=== PATIENT | female | born 1950 | race Caucasian/White ===

== ENCOUNTER → 2016-04-16 | Outpatient (CLI) | payer OTHER ==
[~2016-04-16] MED LIST: ADVIN25050 INH; ASPEC81 PO; ETAN50IN3 SQ; MTH25 PO; OXYSR10 PO; POLYSOL OPB; RXC5 PO; SNK PO; TRAM-10 PO
--- NOTE | 2016-04-16 16:37 | MAMMOGRAPHY REPORT ---
BILATERAL DIGITAL SCREENING MAMMOGRAM WITH CAD: 04/16/2016 CLINICAL HISTORY: Routine screening examination. TECHNIQUE: Bilateral CC and MLO views were obtained. Current study was also evaluated with a Comput er Aided Detection (CAD) system. COMPARISON: Comparison is made to exams dated: 04/13/2015 mammogram, 04/12/2014 mammogram, and 04/08/2012 mammogram - [facility]. BREAST COMPOSITION: There are scattered areas of fibroglandular density in both breasts. FINDINGS: Benign-appearing punctate microcalcifications scattered bilaterally are stable compared to prior exams. No suspicious mass, architectural distortion or cluster of microcalcifications is see n. IMPRESSION: ACR BI-RADS CATEGORY 1: NEGATIVE There is no mammographic evidence of malignancy. A 1 year screening mammogram is recommended. The p atient will receive written notification of the results. Approximately 10% of breast cancers are not detected with mammography. A negative mammographic repor t should not delay biopsy if a clinically suggestive mass is present. Nidhi Andrews M.D. ay/:04/16/2016 14:32:12 Steep Tender: Moraima LUNA(R)(Syl), [facility] letter sent: Normal 1/2 BI-RADS Code: ACR BI-RADS Category 1: Negative
== END | disposition home or self-care (01) ==
LOC: C.MAMM 08:49
PROVIDERS: ATTEND Obstetrics & Gynecology
DX: Z12.31 Encounter for screening mammogram for malignant neoplasm of breast (principal)

== ENCOUNTER → 2016-07-30 | Outpatient (CLI) | payer OTHER | END | disposition home or self-care (01) | LOC: C.PAPS 14:20 | PROVIDERS: ATTEND Obstetrics & Gynecology | DX: Z01.419 Encounter for gynecological examination (general) (routine) without abnormal findings (principal); L90.0 Lichen sclerosus et atrophicus ==

== ENCOUNTER → 2017-04-18 | Outpatient (CLI) | payer OTHER ==
--- NOTE | 2017-04-18 15:07 | MAMMOGRAPHY REPORT ---
BILATERAL DIGITAL SCREENING MAMMOGRAM TOMOSYNTHESIS WITH CAD: 04/18/2017 CLINICAL HISTORY: Routine screening. Patient has no complaints. TECHNIQUE: Breast tomosynthesis in addition to standard 2D mammography was performed. Current study was also evaluated with a Computer Aided Detection (CAD) system. COMPARISON: Comparison is made to exams dated: 04/16/2016 mammogram, 04/13/2015 mammogram, 04/12/2014 axel mogram, 04/09/2013 mammogram, 04/08/2012 mammogram, and 04/05/2011 mammogram - [facility]. BREAST COMPOSITION: There are scattered areas of fibroglandular density in both breasts. FINDINGS: No suspicious masses, calcifications, or areas of architectural distortion are noted in ei ther breast. There has been no significant interval change compared to prior exams. IMPRESSION: ACR BI-RADS CATEGORY 1: NEGATIVE There is no mammographic evidence of malignancy. A 1 year screening mammogram is recommended. The pa tient will receive written notification of the results. Approximately 10% of breast cancers are not detected with mammography. A negative mammographic report should not delay biopsy if a clinically suggestive mass is present. Marcia Rao M.D. ah/:04/18/2017 12:12:35 Or Manager: Nicole LUNA(Cindy)(Syl), [facility] letter sent: Normal 1/2 BI-RADS Code: ACR BI-RADS Category 1: Negative
== END | disposition home or self-care (01) ==
LOC: C.MAMM 08:43
PROVIDERS: ATTEND Obstetrics & Gynecology
DX: Z12.31 Encounter for screening mammogram for malignant neoplasm of breast (principal)

== ENCOUNTER → 2017-08-01 | Outpatient (CLI) | payer OTHER ==
[~2017-08-01] MED LIST changes: -ASPEC81 PO; +ASPI-320 PO
== END | disposition home or self-care (01) ==
LOC: C.LABSPEC 14:01
PROVIDERS: ATTEND Obstetrics & Gynecology
DX: N39.46 Mixed incontinence (principal)

== ENCOUNTER → 2017-08-20 | Outpatient (CLI) | payer OTHER | END | disposition home or self-care (01) | LOC: C.PATHSPEC 17:08 | PROVIDERS: ATTEND Urology | DX: R31.29 Other microscopic hematuria (principal); N95.2 Postmenopausal atrophic vaginitis ==

== ENCOUNTER → 2017-11-10 | Outpatient (CLI) | payer OTHER ==
[~2017-11-10] MED LIST changes: +ADVIN25/60 INH; -ADVIN25050 INH; -ASPI-320 PO; +DTR5 PO; -OXYSR10 PO; -POLYSOL OPB; -RXC5 PO; -SNK PO; +SULI150T PO; -TRAM-10 PO
[2017-11-10 17:06] LABS: BASO % 0.6 %; BASO ABS # 0.05 K/uL (0-0.2); EOS % 3.6 %; EOS ABS # 0.32 K/uL (0-0.5); HEMATOCRIT 38.9 % (37-47); HEMOGLOBIN 12.4 g/dL (12.0-16.0); IG# 0.02 K/uL (0.00-0.02); LYMPH % 23.1 %; LYMPH ABS # 2.05 K/uL (1.2-3.4); MEAN CELL VOLUME 91.7 fL (80-100); MEAN CORPUSCULAR HEMOGLOBIN 29.2 pg (25-34); MEAN CORPUSCULAR HGB CONC 31.9 g/dl (32-36); MEAN PLATELET VOLUME 11.5 fL (7.4-10.4); MONO % 7.2 %; MONO ABS # 0.64 K/uL (0.11-0.59); NEUT % 65.3 %; NEUT ABS # 5.78 K/uL (1.4-6.5); PLATELET COUNT 185 K/uL (130-400); RED CELL DISTRIBUTION WIDTH CV 14.8 % (11.5-14.5); WHITE BLOOD COUNT 8.86 K/uL (4.8-10.8)
== END | disposition home or self-care (01) ==
LOC: C.LAB1850 15:17
PROVIDERS: ATTEND Obstetrics & Gynecology
DX: Z01.818 Encounter for other preprocedural examination (principal)

== ENCOUNTER → 2017-11-27 | Day surgery (SDC) | payer OTHER ==
[2017-11-06 13:41] VITALS: Ht 157.5 cm; Wt 89.1 kg
[~2017-11-27] VITALS: Ht 157.5 cm; Wt 89.1 kg
[~2017-11-27] MED LIST changes: +ATROPINE SULFATE 0.1 MG/ML 5ML SYR IV PRN; +DEXAMETHASONE SOD INJ 4 MG/ML VIAL ONE; +EpHEDrine SULFATE INJ 50 MG/ML AMP IV PRN; +FENTANYL CITRATE INJ 50 MCG/1 ML 2 ML VIAL ONE; +IBUPROFEN 600 MG TAB PO PRN; +KETOROLAC TROMETHAMINE 30 MG/ML VIAL IV. PRN; +LACTATED RINGER'S 1000ML 1,000 ML IV SCH; +LIDOCAINE HCL 2% 2 ML VIAL (20MG/ML) ONE; +MIDAZOLAM HCL 1 MG/ML 2ML VIAL ONE; +MoRPHine SULFATE 2 MG/ML CARP IV PRN; +MoRPHine SULFATE 4 MG/ML 1 ML CARP\\VIAL IV PRN; +ONDANSETRON INJ 2 MG/ML 2 ML VIAL IV PRN; +ONDANSETRON INJ 2 MG/ML 2 ML VIAL ONE; +OXYCODONE/ACETAMINOPHEN 5-325 TAB PO PRN; +PRED-301 PO; +PROPOFOL IV EMULSION 10 MG/ML 20 ML VIAL ONE; +SODIUM CHLORIDE 0.9% 1000ML 1,000 ML IV SCH
--- NOTE | 2017-11-27 07:41 | History & Physical Bridge - [place] ---
H&P Re-Evaluation Bridge Note: I have examined the patient, reviewed the History & Physical and in the interval since the performance of the History & Physical I have noted the following changes of clinical significance: polypectomy planned with D&C/[facility] per consent.
--- NOTE | 2017-11-27 09:44 | Discharge Instructions ---
Discharge Instructions Date of Service Nov 27, 2017. Visit Reason for Visit: Post Menopausal Bleeding Discharge Discharge Diagnosis / Problem: s/p D&C Discharge Goals Goal(s): Specific goals Activity Recommendations Activity Limitations: per Instructions/Follow-up section Anesthesia . Post Anesthesia Instructions: If you have had General Anesthesia or IV Sedation: * Do not drive today. * Resume driving when surgeon permits. * Do not make important decisions or sign legal documents today. * Call surgeon for: 1. Temperature elevations greater than 101 degrees F. 2. Uncontrollable pain. 3. Excessive bleeding. 4. Persistent nausea and vomiting. 5. Medication intolerance (nausea, vomiting or rash). * For nausea and vomiting use only clear liquids such as: tea, soda, bouillon until nausea subsides, then gradually increase diet as tolerated. * If you have any concerns or questions, call your surgeon's office. If physician is unavailable and it is an emergency, call 911 or go to the nearest emergency room. . Instructions / Follow-Up Instructions / Follow-Up ACTIVITY RECOMMENDATIONS: * Avoid tampons, douching, hot tubs, pools, and intercourse until bleeding has stopped. * May shower as usual. * No strenuous activity for 24-48 hours. After 24-48 hours, you may do anything you feel like doing (driving and sports are okay). SPECIAL CARE INSTRUCTIONS: Special Diet: * Mild nausea may occur in the immediate post-operative period. * Take clear liquids such as tea, cola or bouillon until all nausea has subsided; you may then resume your normal diet. Special Care: * Light bleeding and vaginal spotting can last from a few days to 3-4 weeks. Call your doctor if bleeding becomes heavier than the heaviest part of your period. * Check your temperature twice a day for one week. If it goes above 100.4 degrees Fahrenheit (38.0 Celsius), notify your doctor. * Call your doctor's office for an appointment for 6 weeks after your surgery. FOLLOW-UP VISIT: Call your doctor's office for an appointment for 6 weeks after your surgery. Diet Recommendations Recommended Home Diet: no limitations, resume previous diet Procedures Procedures Performed: Dilatation And Curettage, Hysteroscopy, Partial Removal of Large Endometrial Mass Pending Studies Studies pending at discharge: no Medical Emergencies . Who to Call and When: Medical Emergencies: If at any time you feel your situation is an emergency, please call 911 immediately. . Non-Emergent Contact Non-Emergency issues call your: Business Continuity Specialist . . "Provider Documentation" section prepared by Ashli Villalobos. .
--- NOTE | 2017-11-27 09:45 | [facility] Post Operative Brief Note ---
Immediate Operative Summary Operative Date Nov 27, 2017. Pre-Operative Diagnosis Post Menopausal Bleeding, Endometrial Mass Post-Operative Diagnosis same Procedure(s) Performed Dilatation And Curettage, Hysteroscopy, Partial Removal of Large Endometrial Mass Surgeon Dr. Mono Villalobos Workers Compensation Attorney Surgeon(s) 0 Estimated Blood Loss 100ml Findings Consistent with Post-Op Diagnosis Fluids (cc crystalloids) 700cc, 880cc deficit Specimens A: Endometrial Curettings Drains None Anesthesia Type General Complication(s) none Disposition Accompanied Pt To Recover: yes Disposition: Recovery Room / PACU
[2017-11-27] MEDS: FENTANYL CITRATE INJ 50 MCG/1 ML 2 ML VIAL IV PRN ×4 (10:00→10:51)
--- NOTE | 2017-11-27 11:03 | OPERATIVE REPORT ---
DATE OF OPERATION: 11/27/2017 PREOPERATIVE DIAGNOSIS: Postmenopausal bleeding with large endometrial mass. POSTOPERATIVE DIAGNOSIS: Postmenopausal bleeding with large endometrial mass. PROCEDURE: D and C, hysteroscopy with partial removal of large and vascular endometrial mass. SURGEON: Ashli Villalobos MD TALENT DEVELOPMENT ANALYST: None. ANESTHESIA: General per laryngeal mask. ESTIMATED BLOOD LOSS: 100 mL. FLUIDS: 700 mL of IV fluids with an 880 mL hysteroscopic deficit. INDICATIONS: Prema is a 66-year-old postmenopausal female who had episodes of postmenopausal bleeding. She underwent SIS and a large endometrial mass was noted and presents today for removal. FINDINGS: A large endometrial mass that is vascular encompassing essentially the entire endometrial cavity. The surrounding tissue appears normal, but it is difficult visualization because the mass occupies the entire cavity. The tubal ostia were not visualized. Uterus on exam under anesthesia is mobile and anteverted. COMPLICATIONS: None. DRAINS: Dunaway catheter emanating from the uterine cavity. DISPOSITION: To recovery room in stable condition. DESCRIPTION OF PROCEDURE: The patient was taken to the operating room where she was identified verbally and by bracelet. She was placed in dorsal supine position. 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 The patient was then placed under general anesthesia, she was prepped and draped in normal sterile fashion. Timeout was held, identifying correct patient, procedure, positioning, and no need for preoperative antibiotics. SHE HAS AN ALLERGY TO SULFA. The bladder was drained of urine and exam under anesthesia revealed a bulky anteverted uterus that was mobile. There were no appreciable adnexal masses. The uterus was sounded to 9 cm, it was dilated to #25 Sandhya dilator. MyoSure scope was introduced into the uterine cavity with the above noted findings of a large mass that was filling the entire uterine cavity. The best wall of the uterus seen was the posterior wall, so may have been emanated from the anterior uterine wall. I attempted to visualize tubal ostia, but could not. I then removed the scope and took the large polyp forceps placed them into the uterus and removed some of this tissue which then caused it to bleed. I placed the MyoSure scope back inside and put the MyoSure instrument into the scope and attempted to remove further parts of the mass, but had very difficult visualization secondary to bleeding. I then called for the resectoscope. The uterus was then dilated to #33 Sandhya dilator. The resecting scope was introduced with the resecting wire. Again, I had very difficult visualization secondary to bleeding and could not get a clear field in order to do much resecting. I was able to resect a couple of pieces of this mass, but again there was significant bleeding from the mass which made visualization difficult. I therefore decided to discontinue the procedure as I did not feel comfortable doing more resection with poor visualization and knew that likely this patient is going to need a hysterectomy. Because of the pretty significant ooze from the cervix after the procedure, a Dunaway catheter was placed into the uterus. The balloon was filled with 11 mL of normal saline and then bleeding was minimal and the patient was taken to the recovery room. Hysteroscopic deficit was 880 mL. Normal saline was used for the MyoSure procedure and then sorbitol was used briefly for the resecting part of the procedure. All sponge, lap and needle counts were correct x2. The patient tolerated the procedure well and was taken to the recovery room in stable condition. I attest to the content of the Intraoperative Record and any orders documented therein. Any exception s are noted below.
--- NOTE | 2017-11-27 13:23 | Anesthesia Progress Nt - [facility] ---
Anesthesia Post Op Note Date & Time Nov 27, 2017 at 13:22 Vital Signs Pain Intensity: 0 Vital Signs Past 12 Hours Date Time Temp Pulse Resp B/P (MAP) Pulse Ox O2 Delivery O2 Flow Rate FiO2 11/27/17 12:26 59 15 93 11/27/17 12:26 59 15 11/27/17 12:25 116/66 11/27/17 12:21 61 18 94 11/27/17 12:21 62 18 11/27/17 12:20 124/63 11/27/17 12:16 64 17 97 11/27/17 12:16 62 17 11/27/17 12:15 138/70 11/27/17 12:11 67 15 11/27/17 12:11 70 15 136/60 93 11/27/17 12:06 75 15 11/27/17 12:06 78 15 93 11/27/17 12:05 125/74 11/27/17 12:01 64 10 11/27/17 12:01 65 10 80 11/27/17 12:00 126/70 11/27/17 11:56 60 14 97 11/27/17 11:56 59 14 11/27/17 11:55 129/68 11/27/17 11:51 57 14 95 11/27/17 11:51 58 14 11/27/17 11:50 132/71 11/27/17 11:46 62 12 97 11/27/17 11:46 61 12 11/27/17 11:45 137/70 11/27/17 11:41 59 12 11/27/17 11:41 60 12 97 11/27/17 11:40 124/67 11/27/17 11:36 62 15 11/27/17 11:36 62 15 98 11/27/17 11:35 125/70 11/27/17 11:31 64 19 90 11/27/17 11:31 64 19 11/27/17 11:30 120/74 11/27/17 11:26 61 16 95 11/27/17 11:26 61 16 11/27/17 11:25 120/70 11/27/17 11:21 62 15 97 11/27/17 11:21 61 15 11/27/17 11:20 128/67 11/27/17 11:16 63 10 98 8/23/18 11:16 62 10 18 11:15 146/65 8/18 11:13 62 16 18 11:13 67 16 95 18 11:10 133/72 18 11:08 59 12 100 11/27/18 11:08 59 12 18 11:05 155/73 11/27/18 11:03 61 12 18 11:03 63 12 100 18 11:00 128/72 18 10:58 56 11 18 10:58 56 11 100 18 10:55 145/67 11/27/18 10:53 53 13 18 10:53 54 13 100 18 10:50 141/67 18 10:48 53 13 18 10:48 53 13 97 11/27/17 10:45 139/67 18 10:43 56 14 93 11/27/17 10:43 56 14 18 10:40 132/69 11/27/18 10:38 59 13 93 18 10:38 58 13 18 10:35 135/84 18 10:33 58 13 11/27/17 10:33 58 13 97 18 10:30 135/74 18 10:28 57 16 11/27/17 10:28 59 16 100 11/27/17 10:25 137/76 18 10:23 57 14 100 11/27/17 10:23 56 14 11/27/17 10:20 142/76 18 10:18 56 17 11/27/17 10:18 58 17 99 18 10:16 135/69 18 10:13 55 12 18 10:13 58 12 99 18 10:10 141/67 18 10:08 61 18 18 10:08 63 18 98 11/27/17 10:05 142/74 18 10:03 54 9 100 18 10:03 55 9 18 10:00 152/70 8/23/18 09:58 55 13 100 8/23/18 09:58 55 13 11/27/17 09:55 144/71 11/27/17 09:53 63 18 99 11/27/17 09:53 62 18 11/27/17 09:50 129/77 11/27/17 09:48 65 132/71 99 11/27/17 09:48 65 11/27/17 09:48 36.2 55 20 132/71 98 Mask 6 11/27/17 07:37 36.6 66 16 143/84 (103) 93 Room Air Notes Mental Status: alert / awake / arousable, participated in evaluation Pt Amnestic to Procedure: Yes Nausea / Vomiting: adequately controlled Pain: adequately controlled Airway Patency, RR, SpO2: stable & adequate BP & HR: stable & adequate Hydration State: stable & adequate Anesthetic Complications: no major complications apparent Anesthetic Complications: No anesthetic complications, but patient had bleeding in OR and was kept in PACU to ensure hemostasis. No evidence of bleeding. Ok to transfer to stage II for further observation.
[2017-11-27 14:08] VITALS: TEMP 36.7
[2017-11-27 14:43] VITALS: BP 129/67; PULSE 75; O2SAT 97
--- NOTE | 2017-11-27 17:00 | Progress Note ---
Progress Note Date of Service Nov 27, 2017. Progress Note Late Entry I slowly deflated the kim ballon in the patient's uterus, removing about 3- 4cc x 3. Each time, the patient had minimal bleeding. Then watched the patient for over one hour and no signficant bleeding. [place] well. Gave the patient bleeding precautions. Her path will be the first evaluated tomorrow. If cancer, will refer to [facility]. If not, I have her tentatively on the schedule for hyster on 12/05. She is agreeable to this plan.
== END | disposition home or self-care (01) ==
LOC: X.SURG 07:26
PROVIDERS: ATTEND Obstetrics & Gynecology
DX: C54.1 Malignant neoplasm of endometrium (principal); N95.0 Postmenopausal bleeding; N88.2 Stricture and stenosis of cervix uteri; M19.90 Unspecified osteoarthritis, unspecified site; E66.9 Obesity, unspecified; J44.9 Chronic obstructive pulmonary disease, unspecified; M06.9 Rheumatoid arthritis, unspecified; E55.9 Vitamin D deficiency, unspecified; Z82.49 Family history of ischemic heart disease and other diseases of the circulatory system; Z83.3 Family history of diabetes mellitus; Z87.891 Personal history of nicotine dependence; Z79.899 Other long term (current) drug therapy; Z88.2 Allergy status to sulfonamides